=== PATIENT | female | born 1935 | race Hispanic/Latino ===

== ENCOUNTER 2019-10-17 20:10 | Emergency (ER) | payer MEDICARE ==
[~2019-10-17] VITALS: Ht 154.9 cm; Wt 70.3 kg
--- OUTSIDE RECORDS SUMMARY | 2019-10-17 20:12 | XMS REPORT ---
[facility] Address Unknown Phone Unavailable Care Team Providers Care Safety Person Name Role Phone Unavailable Unavailable Problems This patient has no known problems. Allergies, Adverse Reactions, Alerts This patient has no known allergies or adverse reactions. Medications This patient has no known medications. Encounters Start Date/Time End Date/Time Encounter Type Admission Type Attending [facility] [place] Facility Care Department Encounter ID 2019-09-17 00:00:00 2019-09-17 00:00:00 Outpatient [facility] [id number] 2019-08-02 14:24:15 2019-08-02 14:24:15 Outpatient [facility] [id number] 2019-08-02 12:39:11 2019-08-02 12:39:11 Outpatient [facility] [id number] 2019-08-02 00:00:00 2019-08-02 00:00:00 Outpatient [facility] [id number] 2019-06-27 08:23:55 2019-06-27 08:23:55 Outpatient [facility] [id number] 2018-09-17 00:00:00 2018-09-17 00:00:00 Outpatient [facility] [id number] 2018-08-21 00:00:00 2018-08-21 00:00:00 Outpatient [facility] [id number] 2018-07-25 00:00:00 2018-07-25 00:00:00 Outpatient [facility] [id number] 2018-07-24 00:00:00 2018-07-24 00:00:00 Outpatient [facility] [id number] 2018-07-24 00:00:00 2018-07-24 00:00:00 Outpatient [facility] [id number] 2018-07-16 15:23:28 2018-07-16 15:23:28 Outpatient [facility] [id number] 2018-07-09 08:39:46 2018-07-09 08:39:46 Outpatient [facility] [id number] 2018-06-26 08:05:11 2018-06-26 08:05:11 Outpatient [facility] [id number] 2018-06-26 00:00:00 2018-06-26 00:00:00 Outpatient [facility] [id number] 2018-06-14 12:03:17 2018-06-14 12:03:17 Outpatient [facility] [id number] 2018-04-18 13:58:16 2018-04-18 13:58:16 Outpatient [facility] [id number] 2018-03-29 10:27:21 2018-03-29 10:27:21 Outpatient [facility] [id number] 2018-03-26 09:32:39 2018-03-26 09:32:39 Outpatient [facility] [id number] 2018-03-09 08:38:51 2018-03-09 08:38:51 Outpatient [facility] [id number] 2018-03-01 10:58:49 2018-03-01 10:58:49 Outpatient [facility] [id number] 2018-02-28 00:00:00 2018-02-28 00:00:00 Outpatient [facility] [id number] 2018-01-28 00:00:00 2018-01-28 00:00:00 Outpatient [facility] [id number] 2018-01-15 09:20:57 2018-01-15 09:20:57 Outpatient [facility] [id number] 2018-01-04 08:08:43 2018-01-04 08:08:43 Outpatient [facility] [id number] 2017-12-28 00:00:00 2017-12-28 00:00:00 Outpatient [facility] [id number] 2017-12-26 10:23:58 2017-12-26 10:23:58 Outpatient [facility] [id number] 2017-12-11 00:00:00 2017-12-11 00:00:00 Outpatient [facility] [id number] 2017-11-26 00:00:00 2017-11-26 00:00:00 Outpatient [facility] [id number] 2017-10-26 00:00:00 2017-10-26 00:00:00 Outpatient [facility] [id number] 2017-10-12 10:42:46 2017-10-12 10:42:46 Outpatient [facility] [id number] 2017-09-26 00:00:00 2017-09-26 00:00:00 Outpatient [facility] [id number] 2017-09-25 00:00:00 2017-09-25 00:00:00 Outpatient [facility] [id number] 2017-08-25 00:00:00 2017-08-25 00:00:00 Outpatient [facility] [id number] 2017-08-08 13:23:44 2017-08-08 13:23:44 Outpatient [facility] [id number] 2017-07-25 12:16:50 2017-07-25 12:16:50 Outpatient [facility] [id number] 2017-07-25 10:18:21 2017-07-25 10:18:21 Outpatient [facility] [id number] 2017-06-26 00:00:00 2017-06-26 00:00:00 Outpatient [facility] [id number] 2017-06-23 14:40:55 2017-06-23 14:40:55 Outpatient [facility] [id number] 2017-05-30 00:00:00 2017-05-30 00:00:00 Outpatient [facility] [id number] 2017-05-25 13:01:48 2017-05-25 13:01:48 Outpatient [facility] [id number] 2017-05-25 00:00:00 2017-05-25 00:00:00 Outpatient [facility] [id number] 2017-05-09 00:00:00 2017-05-09 00:00:00 Outpatient [facility] [id number] 2017-05-05 00:00:00 2017-05-05 00:00:00 Outpatient [facility] [id number] 2017-04-18 08:23:29 2017-04-18 08:23:29 Outpatient [facility] [id number] 2017-02-16 11:09:13 2017-02-16 11:09:13 Outpatient [facility] [id number] 2017-02-16 10:11:06 2017-02-16 10:11:06 Outpatient [facility] [id number] 2017-01-31 00:00:00 2017-01-31 00:00:00 Outpatient [facility] [id number]
[2019-10-17] MEDS ORDERED: ONDANSETRON HCL INJ 2MG/ML 2ML 2 MG/ML VIAL IV STA (20:24)
[2019-10-17] MEDS ORDERED: ONDANSETRON HCL INJ 2MG/ML 2ML 2 MG/ML VIAL IV NR (20:30)
[2019-10-17 20:38] LABS: BASOPHILS # (AUTO) 0.1 (0.0-0.1); BASOPHILS % 0.8 % (0.0-1.0); EOSINOPHILS # (AUTO) 0.2 (0.0-0.4); EOSINOPHILS % 1.7 % (0.0-6.0); HEMATOCRIT 39.4 % (34.2-44.1); HEMOGLOBIN 12.6 g/dL (12.0-16.0); LYMPHOCYTES # (AUTO) 3.1 (1.0-3.2); LYMPHOCYTES % 34.6 % (18.0-39.1); MEAN CORPUSCULAR HEMOGLOBIN 27.3 pg (28-32); MEAN CORPUSCULAR VOLUME 85.3 fL (81-99); MONOCYTES # (AUTO) 0.8 (0.2-0.8); MONOCYTES % 9.4 % (4.4-11.3); NEUTROPHILS # (AUTO) 4.7 (2.1-6.9); NEUTROPHILS % 52.9 % (38.7-80.0); PLATELET COUNT 297 x10e3/uL (140-360); RED BLOOD COUNT 4.62 x10e6/uL (3.6-5.1); RED CELL DISTRIBUTION WIDTH 14.6 % (11.7-14.4)
[2019-10-17 20:55] LABS: ALANINE AMINOTRANSFERASE 11 IU/L (0-55); ALBUMIN 4.1 g/dL (3.5-5.0); ALBUMIN/GLOBULIN RATIO 1.2 (0.8-2.0); ALKALINE PHOSPHATASE 48 IU/L (40-150); ANION GAP 16.7 mmol/L (8-16); BLOOD UREA NITROGEN 23 mg/dL (7-26); BUN/CREATININE RATIO 27 (6-25); CALCIUM 10.1 mg/dL (8.4-10.2); CARBON DIOXIDE 26 mmol/L (22-29); CHLORIDE 99 mmol/L (98-107); CREATINE KINASE 44 IU/L (29-168); CREATININE, SERUM 0.84 mg/dL (0.57-1.11); EST GLOMERULAR FILTRATION RATE > 60 ML/MIN (60-); GLUCOSE 134 mg/dL (74-118); POTASSIUM 3.7 mmol/L (3.5-5.1); SODIUM 138 mmol/L (136-145)
--- NOTE | 2019-10-17 21:05 | Diagnostic Imaging Report ---
Examination: CT BRAIN WO CONTRAST History:Dizziness; high blood pressure. Comparison studies:None Technique: Axial images were obtained from the skull base to the vertex. Coronal and sagittal images reconstructed from the axial data. Dose modulation, iterative reconstruction, and/or weight based adjustment of the mA/kV was utilized to reduce the radiation dose to as low as reasonably achievable. Intravenous contrast: None Findings: Scalp: No abnormalities. Bones: Hyperostosis frontalis. No fractures, blastic or lytic lesions. Brain sulci: Appropriate for age. Ventricles: Normal in size and configuration. No hydrocephalus. Extra-axial space: No abnormalities. Parenchyma: No masses, hemorrhage, or acute or chronic cortical based vascular insults.. Sellar/suprasellar region: No abnormalities. Craniocervical junction: Patent foramen magnum. No Chiari one malformation. Incidental findings: None. Impression: No acute intracranial abnormalities. Signed by: Dr. Jena Saleh M.D. on 10/17/2019 9:02 PM
[2019-10-17 21:14] VITALS: BP 136/84
== END 2019-10-17 21:43 | disposition home or self-care (01) ==
LOC: ER 20:10
DX: I10 Essential (primary) hypertension (principal); R42 Dizziness and giddiness; E11.40 Type 2 diabetes mellitus with diabetic neuropathy, unspecified; E78.5 Hyperlipidemia, unspecified; G25.81 Restless legs syndrome
CPT/HCPCS: 36415; 70450; 80053; 82550; 82553; 84484; 85025; 93005; 99284; J2405